=== PATIENT | male | born 1950 | race Caucasian/White ===

== ENCOUNTER → 2016-03-19 | Day surgery (SDC) | payer OTHER, BC ==
[~2016-03-19] VITALS: Ht 180.3 cm; Wt 118.0 kg
[~2016-03-19] MED LIST: ACET-1256 PO; ACET-1257 PO; ASPI81TA28 PO; ATOR-54 PO; B-COTAB83 PO; BISO10TA4 PO; CEFAZOLIN 1000MG/55 ML D5W IV SCH; CEPH500C PO; CHOLCAP10 PO; CINA60TA PO; CIPR-255 PO; CIPR1TAB10 PO; D5W AND 1/4NSS 1000 ML IV SCH; DICL1GEL34; FENTANYL CITRATE INJ 50 MCG/1 ML 2 ML VIAL ONE; FLUT1AER5 INH; FURO80TA63 PO; INSDGI SC; INSDGIPEN SC; INSULIN SQ; LIDOCAINE HCL 1% 20 ML VIAL INJ ONE; MIDAZOLAM HCL 1 MG/ML 2ML VIAL ONE; NVLGI7030 SC; OPTIRAY 300 IV ONE; RXC5 PO; SEVE800T7 PO; SNK PO; VNTHFA/IN INH
--- NOTE | 2016-03-19 07:50 | History and Physical ---
History & Physical Chief Complaint: Malfunctioning left wrist avf History of Present Illness The patient is a 63 year old male who had a fistula placed in 2009, Started using it last january. Not running well. Question of maturation of the fistula. He was found to have a proximal stenosis on a fistulogram and now has occluded that segment Allergies Coded Allergies: No Known Allergies (Unverified , 09/01/14) Surgical / Medical History Past Medical/Surgical History: Diabetes, Hypertension, Kidney Disease Review of Systems Constitutional: No chills, No diaphoresis, No fatigue, No fever, No malaise, No problem reported, No sweats, No weakness, No weight gain, No weight loss Respiratory: No POWERS, No PND, No cough, No cyanosis, No dyspnea, No hemoptysis, No orthopnea, No problem reported, No short of breath, No sputum production, No stridor, No wheezing Cardiovascular: No chest pain, No chest pressure, No chest tightness, No cyanosis, No diaphoresis, No edema, No intermittent claudication, No lightheadedness, No mumur, No orthopnea, No palpitations, No paroxysmal nocturnal dyspnea, No problem reported, No syncope Gastrointestinal: No abdominal pain, No anorexia, No appetite changes, No belching, No constipation, No diarrhea, No dysphagia, No flatulence, No food intolerance, No heartburn, No hematemesis, No hematochezia, No hemorrhoids, No indigestion, No nausea, No problem reported, No rectal bleeding, No stool changes, No vomiting Musculoskeletal: No back pain, No gout, No joint pain, No joint swelling, No muscle pain, No muscle stiffness, No muscle weakness, No neck pain, No problem reported Neurologic: No LOC, No dizziness, No headache, No lethargy, No memory loss, No numbness, No paresthesia, No pre-existing deficit, No problem reported, No seizures, No tics, No tingling, No tremors, No vertigo, No weakness Psychiatric: No alcohol abuse, No anxiety, No auditory hallucinations, No depression, No drug abuse, No homicidal ideation, No mood changes, No problem reported, No suicidal ideation, No visual hallucinations Physical Exam: Constitutional: General Apperance: heathly-appearing, well-nourished, well-developed Level of Distress: NAD Ambulation: ambulating normally Psychiatric: Mental Status: active & alert, normal mood, normal affect Orientation: oriented except where noted, to time, to place, to person Memory: recent memory normal, remote memory normal Head: normocephalic, atraumatic Lungs: Auscultation: breath sounds normal Cardiovascular: Heart Auscultation: RRR Peripheral Pulses: Carotid Pulse: normal on the left, normal on the right Radial Pulse: normal on the left, normal on the right Femoral Pulse: normal on the left, normal on the right Abdomen: Inspection & Palpation: soft Musculoskeletal: normal, normal strength (5/5 throughout), normal tone Extremities: Upper Right: no cyanosis, no edema, no varicosities, no palpable cord, no clubbing, no ulcers, no mottling Upper Left: no cyanosis, no edema, no varicosities, no palpable cord, no clubbing, no ulcers, no mottling, pertinent finding (no thrill at wrist) Lower Right: no cyanosis, no edema, no varicosities, no palpable cord, no clubbing, no ulcers, no mottling Lower Left: no cyanosis, no edema, no varicosities, no palpable cord, no clubbing, no ulcers, no mottling Neurologic: Cranial Nerves: grossly intact Sensation: grossly intact A&P - Vascular H&P Assessment and Plan Imp: Malfunctioning avf left wrist Plan: Patient for revision of his fistula. I have discussed the risks options and benefits of the procedure with the patient. The patient understands the risks options and benefits and agrees to the procedure.
--- NOTE | 2016-03-19 07:59 | Procedure Note ---
Pre-Mod Sedation Assessment General Date of Moderate Sedation: Mar 19, 2016. Pre-Sedation Airway Assessment Smoking Status: Never Smoker Mallampati Classification: Class I ASA Classification: Class II Notes The planned sedation has been discussed with the patient and consent obtained. I have identified the patient, determined the appropriateness of sedation and have assessed the patient immediately prior to the procedure. All medicine(s) and interventions are by my order.
[2016-03-19 08:32] VITALS: BP 164/82; PULSE 71; TEMP 36.4; O2SAT 96; BMI 36.0
[2016-03-19 08:46] VITALS: BP 164/82; PULSE 71; TEMP 36.4; O2SAT 96; Ht 180.3 cm; Wt 118.0 kg
--- NOTE | 2016-03-19 10:21 | [facility] Post Operative Brief Note ---
Immediate Operative Summary Operative Date Mar 19, 2016. Pre-Operative Diagnosis malfunctioning fistula Post-Operative Diagnosis same with cephalic vein stenosis Procedure(s) Performed Fistulogram Left Upper Extremity, Percutaneous Transluminal Angioplasty Cephalic Vein Surgeon Dr. Wiley Cocoa Roaster Surgeon(s) none Estimated Blood Loss 5 ml Findings min residual stenosis Specimens none Anesthesia Local Complication(s) None Disposition
--- NOTE | 2016-03-19 10:22 | Discharge Instructions ---
Discharge Instructions Visit Reason for Visit: End Stage Renal Disease Discharge Discharge Diagnosis / Problem: Malfunctioning av fistula, cephalic vein stenosis Discharge Goals Goal(s): Therapeutic intervention Activity Recommendations Activity Limitations: per Instructions/Follow-up section Anesthesia . Post Anesthesia Instructions: If you have had General Anesthesia or IV Sedation: * Do not drive today. * Resume driving when surgeon permits. * Do not make important decisions or sign legal documents today. * Call surgeon for: 1. Temperature elevations greater than 101 degrees F. 2. Uncontrollable pain. 3. Excessive bleeding. 4. Persistent nausea and vomiting. 5. Medication intolerance (nausea, vomiting or rash). * For nausea and vomiting use only clear liquids such as: tea, soda, bouillon until nausea subsides, then gradually increase diet as tolerated. * If you have any concerns or questions, call your surgeon's office. If physician is unavailable and it is an emergency, call 911 or go to the nearest emergency room. . Instructions / Follow-Up Instructions / Follow-Up Call [phone] with any questions or concerns. SPECIAL CARE INSTRUCTIONS: Medications: * Continue to take your medications as directed. If you have been given a prescription for Plavix, please fill it immediately and take as directed. Incision Care: * Your puncture site may have some bruising and minor swelling for about one week. * You will have a small dressing covering your puncture site. You may remove the dressing after 24 hours and shower. You may let the warm soapy water run over it, but be sure to dry the puncture site well and keep it dry. * DO NOT IMMERSE THE INCISION IN A TUB/POOL/etc. UNTIL HEALED. * Puncture sites should be kept covered with a band-aid until it begins to heal. Restrictions: * Depending on whether you leg or arm was punctured to access the arteries, you will be required to lay flat, hold your arm still, or both, for about 4 hours after the procedure to prevent bleeding. * Limit your activity for the first 48 hours. You may walk and go up and down steps. Avoid excessive bending or movement at the puncture site. Possible Complications: * Excessive Swelling - after blood flow is improved you may notice increased swelling in the lower legs. This is a normal response. This usually depends on the amount of blockages in the leg, how long they have been there prior to your procedure and how much blood flow was restored. Elevating your legs will help to improve this. Please notify our office ([phone] ) if the swelling does not go away after lying in bed overnight. * Infection/Drainage/Bleeding - Drainage or bleeding from the puncture site should be minimal. If you have excessive bleeding or drainage, call our office ([phone]) right away. * Pain - You may experience some mild pain or soreness at your puncture site. If your pain does not improve, please contact our office ([phone]). Call your doctor and seek emergent treatment if you develop: * Temperature above 101 degrees * Any fever or chills * Any redness or purulent drainage from the puncture site * Any new dusky/blue colored toes or feet with coolness or sharp or aching pain. SKIN IRRITATION: * You may experience some redness and/or swelling in the area where radiation was administered. If any skin irritation occurs, please contact your family physician. FOLLOW UP VISIT: Keep any scheduled doctor appointments. Diet Recommendations Recommended Home Diet: resume previous diet Procedures Procedures Performed: Fistulogram Left Upper Extremity, Percutaneous Transluminal Angioplasty Cephalic Vein Pending Studies Studies pending at discharge: no Medical Emergencies . Who to Call and When: Medical Emergencies: If at any time you feel your situation is an emergency, please call 911 immediately. . Non-Emergent Contact Non-Emergency issues call your: Surgeon . . "Provider Documentation" section prepared by Gatito Wiley.
[2016-03-19 10:28] VITALS: BP 172/86; PULSE 62; TEMP 36.7; O2SAT 98
--- NOTE | 2016-03-19 10:43 | DIAGNOSTIC IMAGING REPORT ---
DATE OF PROCEDURE: 03/19/2016 PREOPERATIVE DIAGNOSIS: Malfunctioning left upper extremity fistula. POSTOPERATIVE DIAGNOSIS: Same with cephalic vein stenosis. PROCEDURE: 1. Fistulogram, left upper extremity. 2. Balloon angioplasty, cephalic vein. SURGEON: Dr. Wiley. ANESTHETIC: Local. PROCEDURE INDICATIONS: The patient is a 65-year-old gentleman with a left wrist AV fistula. They are having some difficulty with fistulogram at dialysis with poor runs. Fistulogram was recommended. He understood the risks, options and benefits, and agreed to have this procedure. The patient was taken to the angiogram suite and placed in supine position. After left upper extremity was prepped and draped in a sterile manner, local anesthetic was administered. The fistula was punctured using micropuncture technique just beyond the arterial anastomosis at the wrist level. The micropuncture sheath was inserted and fistulogram was performed. There is a moderate narrowing noted in the proximal portion of the fistula in the cephalic vein, approximately 70-80%. The rest of the fistula from there up through the innominate veins is widely patent. The sheath was then exchanged to a 6-Palestinian sheath. An 8 x 4 balloon was used to dilate this area. There was significant residual stenosis remaining. The sheath was then exchanged to a 7-Palestinian and a 10 x 2 Conquest balloon was used to dilate this area. Good results were seen. 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 Above this area, the vein is of the same caliber as the dilated area. It was decided not to stretch it any further. There was an excellent thrill felt in the fistula at that time. The sheath was then pulled, pressure was applied, adequate hemostasis was obtained. Sterile dressings were applied to the puncture site and the patient left the angio suite in good condition, tolerated the procedure well. [facility] HOSPITALTruman
[2016-03-19 11:00] VITALS: BP 148/66; PULSE 55; TEMP 36.7; O2SAT 97
[2016-03-19 11:30] VITALS: BP 169/76; PULSE 58; TEMP 36.8; O2SAT 98
== END | disposition home or self-care (01) ==
LOC: C.ACU 07:27
PROVIDERS: ATTEND Surgery Vascular Surgery
DX: T82.858A Stenosis of other vascular prosthetic devices, implants and grafts, initial encounter (principal); I11.9 Hypertensive heart disease without heart failure; I10 Essential (primary) hypertension; E11.9 Type 2 diabetes mellitus without complications; N28.9 Disorder of kidney and ureter, unspecified; Y83.2 Surgical operation with anastomosis, bypass or graft as the cause of abnormal reaction of the patient, or of later complication, without mention of misadventure at the time of the procedure

== ENCOUNTER 2016-04-17 12:23 | Emergency (ER) | payer OTHER, BC ==
[~2016-04-17] VITALS: Ht 180.3 cm; Wt 115.0 kg
[~2016-04-17 12:23] MED LIST changes: -ACET-1256 PO; -ACET-1257 PO; -ASPI81TA28 PO; -ATOR-54 PO; -B-COTAB83 PO; -BISO10TA4 PO; -CEFAZOLIN 1000MG/55 ML D5W IV SCH; -CEPH500C PO; -CHOLCAP10 PO; -CINA60TA PO; -CIPR-255 PO; -D5W AND 1/4NSS 1000 ML IV SCH; -DICL1GEL34; -FENTANYL CITRATE INJ 50 MCG/1 ML 2 ML VIAL ONE; -FLUT1AER5 INH; -FURO80TA63 PO; -INSDGIPEN SC; -LIDOCAINE HCL 1% 20 ML VIAL INJ ONE; -MIDAZOLAM HCL 1 MG/ML 2ML VIAL ONE; -NVLGI7030 SC; -OPTIRAY 300 IV ONE; -RXC5 PO; -SEVE800T7 PO; -SNK PO; -VNTHFA/IN INH
[2016-04-17 12:36] VITALS: TEMP 36.9; Ht 180.3 cm; Wt 115.0 kg
[2016-04-17 13:00] LABS: URINE APPEARANCE TURBID (CLEAR); URINE BILIRUBIN NEG (NEG); URINE COLOR DK YELLOW; URINE NITRITE NEG (NEG); URINE SPECIFIC GRAVITY 1.016 (1.000-1.030); UROBILINOGEN NEG (NEG); ZZUR CULT IF INDIC CLEAN CATCH YES
[2016-04-17 13:06] LABS: MANUAL MICROSCOPIC REQUIRED? NO; REVIEW REQ? YES
[2016-04-17 13:44] LABS: BASO % 0.2 %; BASO ABS # 0.03 K/uL (0-0.2); COMPLETE YES; EOS % 0.3 %; HEMATOCRIT 31.2 % (42-52); IG% 0.2 %; LYMPH % 10.2 %; LYMPH ABS # 1.56 K/uL (1.2-3.4); MEAN CORPUSCULAR HEMOGLOBIN 29.2 pg (25-34); MEAN CORPUSCULAR HGB CONC 32.1 g/dl (32-36); MEAN PLATELET VOLUME 8.8 fL (7.4-10.4); NEUT % 84.1 %; PLATELET COUNT 259 K/uL (130-400); RED BLOOD COUNT 3.43 M/uL (4.7-6.1); WHITE BLOOD COUNT 15.24 K/uL (4.8-10.8)
[2016-04-17 14:26] LABS: BUN/CREATININE RATIO 6.9 (10-20); CALCIUM 8.2 mg/dl (8.5-10.1); CREATININE 7.4 mg/dl (0.60-1.40); POTASSIUM 4.4 mmol/L (3.5-5.1)
[2016-04-17] MEDS ORDERED: CIPROFLOXACIN 500 MG TAB PO STA (15:10)
[2016-04-17] MEDS ORDERED: CIPR-255 PO (15:12)
[2016-04-17 15:23] VITALS: BP 190/94; PULSE 62; O2SAT 97
--- NOTE | 2016-04-17 16:12 | EMERGENCY ROOM VISIT NOTE ---
History Report prepared by Amy: Fiordaliza Morse Under the Supervision of: Dr. Arnel Rojo M.D. First contact with patient: 13:10 Chief Complaint: URINARY SYMPTOMS Stated Complaint: CONSTANT URINATING Nursing Triage Summary: Pt states he has a constant urge to urinate and dribbling. On dialysis. History of Present Illness The patient is a 65 year old male who presents to the Emergency Room with complaints of constant urinary symptoms that started a couple days ago. The patient states that he has a constant urge to urinate along with increased urinary frequency. However, when he tries to urinate he "only dribbles." The patient is on dialysis, so the decreased urine volume is not new. However, he typically only urinates in the morning, so the increased urinary frequency is new for him. He denies burning with urination. The patient has been on dialysis for about two years. He experienced kidney failure secondary to diabetes. He receives dialysis Mondays, Wednesdays, and Fridays. He did not go to dialysis today, but he states that he went on Friday. The patient states that he feels well beside the increased urinary urgency and frequency. He denies headaches, fevers, chills, chest pain, shortness of breath, nausea, and vomiting. 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 They called his PCP about his symptoms but they wanted him to come into the ED because they were concerned that the symptoms were a complication from the amputation. The patient was supposed to get the stitches out of his leg yesterday, but he did not go due to the bad weather. The patient takes one baby aspirin daily, but otherwise denies being on any blood thinners. Source of History: patient, treating provider, spouse/significant other Onset: a couple days ago Quality: other (increased urinary urgency and frequency) Timing: constant Associated Symptoms: No SOB, No chest pain, No chills, No fevers, No headache, No nausea, No vomiting Review of Systems See HPI for pertinent positives & negatives. A total of 10 systems reviewed and were otherwise negative. 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 Nurse's notes were reviewed and I agree with. End-stage renal disease. Dialysis on Friday and Friday. Family History No pertinent family history Social History Smoking Status: Never Smoker Drug Use: none Marital Status: Housing Status: lives with family Occupation Status: retired Current/Historical Medications Scheduled Aspirin (Aspirin Ec), 81 MG PO QPM Atorvastatin (Lipitor), 20 MG PO QPM B-Complex W/ C & Folic Acid (Nephro-Rani Rx), 1 TAB PO QPM Bisoprolol Fumarate (Bisoprolol Fumarate), 20 MG PO QAM Cholecalciferol (D 5000), 5,000 UNITS PO WK Cinecalcet (Sensipar), 60 MG PO DAILY Ciprofloxacin Hcl (Cipro), 500 MG PO QD Fluticasone Propionate (Inhala (Flovent Diskus), 1 PUFFS INH BID Furosemide (Lasix), 160 MG PO DAILY Insulin Aspart 70/30 (Novolog Mix 70/30), 7 UNITS SC TIDM Insulin Glargine (Lantus Solostar), 20 UNITS SC QAM Sevelamer Carbonate (Renvela), 1,600 MG PO TIDM Scheduled PRN Acetaminophen (Tylenol), 1,000 MG PO Q4H PRN for Pain Miscellaneous Medications Diclofenac Sodium (Topical) (Diclofenac Sodium) Allergies Coded Allergies: No Known Allergies (Unverified , 04/17/16) Physical Exam Vital Signs Date Time Temp Pulse Resp B/P Pulse Ox O2 Delivery O2 Flow Rate FiO2 04/17/16 15:23 62 18 190/94 97 04/17/16 14:32 60 14 172/77 97 Room Air 04/17/16 12:36 36.9 60 18 154/71 96 Room Air Physical Exam General: Well developed well nourished non-ill appearing older male in no acute distress, breathing comfortably on room air. Normal speech HEENT: Normal cephalic atraumatic. Pupils are equal round and reactive to light. Extraocular movements are intact. Oropharynx is pink with moist mucous membranes. No swelling of the mouth lips or tongue. Neck: Supple with a midline trachea. No meningeal signs or stiffness, no JVD or bruits. No Stridor. Chest: Clear to auscultation bilaterally. No wheezes or rhonchi. No increased work of breathing. Heart: regular rate and rhythm. Abdomen: Soft nontender, nondistended without rebound guarding or rigidity. Extremities: Fistula in left arm with palpable thrill. Right BKA with well- healing incision. No cyanosis clubbing or edema. No calf tenderness or assymetry Spine/Back. Non tender to palpation. No CVA tenderness Skin: Good turgor without rashes. Neurologic exam: Cranial nerves two through 12 are intact. Motor and sensation are intact and symmetrical throughout. Medical Decision & Procedures Laboratory Results 04/17/16 13:20 Red Blood Count 3.43, Mean Corpuscular Volume 91.0, Mean Corpuscular Hemoglobin 29.2, Mean Corpuscular Hemoglobin Concent 32.1, Mean Platelet Volume 8.8, Neutrophils (%) (Auto) 84.1, Lymphocytes (%) (Auto) 10.2, Monocytes (%) (Auto) 5.0, Eosinophils (%) (Auto) 0.3, Basophils (%) (Auto) 0.2, Neutrophils # (Auto) 12.81, Lymphocytes # (Auto) 1.56, Monocytes # (Auto) 0.76, Eosinophils # (Auto) 0.05, Basophils # (Auto) 0.03 04/17/16 13:20 Test 04/17/16 12:45 04/17/16 13:20 Urine Color DK YELLOW Urine Appearance TURBID (CLEAR) Urine pH 5.0 (4.5-7.5) Urine Specific [place] 1.016 (1.000-1.030) Urine Protein 3+ (NEG) Urine Glucose (UA) NEG (NEG) Urine Ketones TRACE (NEG) Urine Occult Blood 2+ (NEG) Urine Nitrite NEG (NEG) Urine Bilirubin NEG (NEG) Urine Urobilinogen NEG (NEG) Urine Leukocyte Esterase LARGE (NEG) Urine WBC (Auto) >30 /hpf (0-5) Urine RBC (Auto) 10-30 /hpf (0-4) Urine Hyaline Casts (Auto) 1-5 /lpf (0-5) Urine Epithelial Cells (Auto) 10-20 /lpf (0-5) Urine Bacteria (Auto) 4+ (NEG) Urine Yeast (Auto) (NONE PRSENT) White Blood Count 15.24 K/uL (4.8-10.8) Red Blood Count 3.43 M/uL (4.7-6.1) Hemoglobin 10.0 g/dL (14.0-18.0) Hematocrit 31.2 % (42-52) Mean Corpuscular Volume 91.0 fL (80-100) Mean Corpuscular Hemoglobin 29.2 pg (25-34) Mean Corpuscular Hemoglobin Concent 32.1 g/dl (32-36) Platelet Count 259 K/uL (130-400) Mean Platelet Volume 8.8 fL (7.4-10.4) Neutrophils (%) (Auto) 84.1 % Lymphocytes (%) (Auto) 10.2 % Monocytes (%) (Auto) 5.0 % Eosinophils (%) (Auto) 0.3 % Basophils (%) (Auto) 0.2 % Neutrophils # (Auto) 12.81 K/uL (1.4-6.5) Lymphocytes # (Auto) 1.56 K/uL (1.2-3.4) Monocytes # (Auto) 0.76 K/uL (0.11-0.59) Eosinophils # (Auto) 0.05 K/uL (0-0.5) Basophils # (Auto) 0.03 K/uL (0-0.2) RDW Standard Deviation 56.4 fL (36.4-46.3) RDW Coefficient of Variation 17.1 % (11.5-14.5) Immature Granulocyte % (Auto) 0.2 % Immature Granulocyte # (Auto) 0.03 K/uL (0.00-0.02) Anion Gap 12.0 mmol/L (3-11) Est Creatinine Clear Calc Drug Dose 12.8 ml/min Estimated GFR () 8.1 Estimated GFR (Non- 7.0 BUN/Creatinine Ratio 6.9 (10-20) Calcium Level 8.2 mg/dl (8.5-10.1) Laboratory studies as stated above per my review. Medications Administered Medications (Trade) Dose Ordered Sig/Dwayne Route Start Time Stop Time Status Last Admin Dose Admin Ciprofloxacin (Cipro Tab) 500 mg NOW STAT PO 04/17/16 15:10 04/17/16 15:12 DC 04/17/16 15:18 500 MG ED Course 1312: Past medical records reviewed. The patient was evaluated in room C3, and a complete history and physical examination were performed. 1431: I reassessed the patient. He is resting comfortably. 1507: I discussed the patient's case with Dr. Villafuerte - Nephrology. He recommended starting the patient on 500 mg of ciprofloxacin and then send him strait to dialysis. He is going to alert the dialysis center that the patient is coming. 1510: Ordered Cipro Tab 500 mg PO 1512: Upon reevaluation, the patient is doing well. I discussed the results and treatment plan with him. He verbalized agreement of the treatment plan. The patient was discharged home. Medical Decision Differentials include, but are not limited to; UTI, electrolyte or metabolic abnormality. This patient comes in as described above. He has had some urinary frequency but besides this feels fine. he is a dialysis patient and does not make much urine. He had no fever or back pain or systemic complaints. His urine does suggest a infection with a culture pending. He has no acute electrolyte or metabolic abnormalities. potassium is 4.4. his white count is elevated 15. he's been normotensive and has been afebrile. I did talk to his reproduction artist, Dr. Villafuerte, as I was concerned that he missed dialysis today. He told me that the dialysis center that he gets his dialysis in [place] is open until 7 or 8 at night and he should be able to get dialysis today. he is going to call over at length him know he's coming. he recommends Cipro 500 mg once a day. he was given first dose here as well as a prescription. He was sent home and will get dialysis on the way home. I encouraged him to return if he has fever, back pain , worsening of symptoms, not tolerating fluids, any problems concerns. He follow with his doctor 1-2 days for recheck or sooner if any problems. The patient and are happy with the plan and he was discharged to home. Consults Time Called: 1428 Consulting Physician: Dr. Villafuerte - Nephrology Returned Call: 1504 I discussed the patient's case with Dr. Villafuerte - Farhan. He recommended starting the patient on 500 mg of ciprofloxacin and then send him strait to dialysis. He is going to alert the dialysis center that the patient is coming. Impression Primary Impression: Urinary tract infection Additional Impression: End stage renal disease Scribe Attestation The scribe's documentation has been prepared under my direction and personally reviewed by me in its entirety. I confirm that the note above accurately reflects all work, treatment, procedures, and medical decision making performed by me. Departure Information Dispostion Other (Dialysis) Prescriptions Ciprofloxacin Hcl (CIPRO) 500 Mg Tab 500 MG PO QD, #10 TAB Prov: Arnel Rojo M.D. 04/17/16 Referrals Juliet Rick (PCP) Forms HOME CARE DOCUMENTATION FORM, IMPORTANT VISIT INFORMATION Patient Instructions My [facility] Additional Instructions Rest Straight to dialysis. They should be expecting you Use Cipro 500 mg once a day for 10 days Return if: Fever, worsening symptoms, abdominal pain, not tolerating fluids, any new problems or concerns. Problem Qualifiers
--- NOTE | 2016-04-19 16:15 | Pharmacy Progress Note ---
ED Pharmacist Culture FollowUp Date of Service: Apr 19, 2016. Patient was sent home with a prescription for Cipro 500mg PO daily, however the urine culture from 04/17/16 is growing E coli resistant to Cipro. Discussed the case with Dr Rojo, will d/c the Cipro and begin Keflex 500mg PO Daily x 10 days, to be dosed after dialysis on days of dialysis. I contacted the patient and obtained instructions to call this Rx to [facility], Lexi Erickson ([phone]). The Rx was successfully called to this pharmacy. The patient is aware he is to stop taking the Cipro.
[2016-04-23] MEDS ORDERED: ASPI81TA28 PO (11:17)
== END 2016-04-17 15:22 | disposition home or self-care (01) ==
LOC: C.EDB 12:24 → C.EDC 15:22
DX: N39.0 Urinary tract infection, site not specified (principal); N18.6 End stage renal disease; E11.9 Type 2 diabetes mellitus without complications; E78.5 Hyperlipidemia, unspecified; Z99.2 Dependence on renal dialysis; Z86.19 Personal history of other infectious and parasitic diseases; Z79.82 Long term (current) use of aspirin; Z79.4 Long term (current) use of insulin; Z79.899 Other long term (current) drug therapy

== ENCOUNTER 2016-04-22 08:14 | Inpatient (IN) | payer OTHER, BC ==
[~2016-04-22] VITALS: Ht 180.3 cm; Wt 119.0 kg
[2016-04-22] VITALS (17 sets, daily range): BP systolic 124–195; BP diastolic 61–79; PULSE 51–58; TEMP 36.4–37.6; O2SAT 96–98; Ht 180.3 cm; Wt 119.0 kg
[~2016-04-22 08:14] MED LIST changes: +CIPR-255 PO; -CIPR1TAB10 PO; -INSDGI SC; -INSULIN SQ
[2016-04-22] MEDS ORDERED: ACET-1256 PO (08:27)
--- NOTE | 2016-04-22 08:36 | EMERGENCY ROOM VISIT NOTE ---
History First contact with patient: 08: (Grant Sexton PA-C) First contact with patient: 08: (Polly Huber MD) Chief Complaint: URINARY SYMPTOMS Stated Complaint: UTI, CONSTANT URINE AND PURE BLOOD Nursing Triage Summary: Pt is a dialysis pt. Seen here last Fri and dx with a UTI. Pt started on Cipro, called on Fri and had it changed to Keflex. Pt reports starting yesterday morning hematuria. Pt reports freq. Denies burning with urination. Pt scheduled for dialysis today at 1000. (Grant Sexton PA-C) History of Present Illness The patient is a 65 year old male who presents to the Emergency Room via private vehicle accompanied by with complaints of "UTI, constant urine. Blood". The patient states that he was seen here a few days ago and diagnosed with a UTI and was placed upon ciprofloxacin. He states that he has taken this until Friday where he received a phone call from the hospital stating that a change to Keflex should be made based upon the urine culture. He then began the Keflex on Friday and notes that it did help with the foul-smelling urine, however yesterday he began with visible blood in the urine which was bright red. He states that this has increase in frequency and now he is urinating every 30-45 minutes which is unusual for him. He does have kidney disease and is dialyzed 3 times per week. His last dialysis was on Friday. He is to be at dialysis today at 10 AM. He also noted that he had pain in the lower abdomen with coughing that he noted yesterday, but has since subsided. He denies any pain with bowel movements but has had a little bit of diarrhea since beginning the Keflex. He denies any dysuria, rashes or penile discharge. He has taken Keflex in the past before. He denies any fevers, chills or back pain. (Grant Sexton PA-C) Review of Systems A complete 10-point Review of Systems was discussed with the patient, with pertinent positives and negatives listed in the History of Present Illness. All remaining Review of Systems questions can be considered negative unless otherwise specified. 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 (3) Hyperlipemia (4) Sepsis (Polly Huber MD) Family History No pertinent family history Diabetes, heart disease, high blood pressure, cancer, kidney disease or stones (Grant Sexton PA-C) No pertinent family history (Polly Huber MD) Social History Smoking Status: Never Smoker Drug Use: none Marital Status: Housing Status: lives with family Occupation Status: retired (Grant Sexton PA-C) Current/Historical Medications Scheduled Aspirin (Aspirin Ec), 81 MG PO QPM Atorvastatin (Lipitor), 20 MG PO QPM B-Complex W/ C & Folic Acid (Nephro-Rani Rx), 1 TAB PO QPM Bisoprolol Fumarate (Bisoprolol Fumarate), 20 MG PO QAM Cephalexin Monohydrate (Keflex), 500 MG PO DAILY Cholecalciferol (D 5000), 5,000 UNITS PO WK Cinecalcet (Sensipar), 60 MG PO DAILY Fluticasone Propionate (Inhala (Flovent Diskus), 1 PUFFS INH BID Furosemide (Lasix), 160 MG PO DAILY Insulin Aspart 70/30 (Novolog Mix 70/30), 7 UNITS SC TIDM Insulin Glargine (Lantus Solostar), 20 UNITS SC QAM Sevelamer Carbonate (Renvela), 1,600 MG PO TIDM Scheduled PRN Acetaminophen (Tylenol), 1,000 MG PO Q4H PRN for Pain Miscellaneous Medications Diclofenac Sodium (Topical) (Diclofenac Sodium) Allergies Coded Allergies: No Known Allergies (Unverified , 04/22/16) Physical Exam Vital Signs Date Time Temp Pulse Resp B/P Pulse Ox O2 Delivery O2 Flow Rate FiO2 04/22/16 09:48 36.9 53 16 167/67 96 Room Air 04/22/16 08:20 37.1 56 18 170/61 98 Room Air (Polly Huber MD) Physical Exam VITAL SIGNS - Vital signs and nursing notes were reviewed. Afebrile, slightly hypertensive at 170/61, nontender tachycardic and saturating well on room air 98 %. GENERAL -65-year-old male appearing his stated age who is in no acute distress. He is nontoxic in appearance. Communicates well with provider and answers questions appropriately. SKIN - Without rashes. HEAD - NC/AT. EYES - PERRL with EOMI bilaterally. Sclera anicteric. Palpebral conjunctiva pink and moist with no injection noted. EARS - No deformities of external structures noted on gross examination bilaterally. No pain elicited with palpation of the tragus bilaterally. External auditory canals without discharge or otorrhea. Tympanic membranes pearly burroughs without retraction or bulging. No fluid or purulent material visualized behind the TM. Handle of malleus, umbo, cone of light, pars tensa/ flaccid all easily visualized. NOSE - Midline and without cyanosis. No epistaxis or purulent drainage noted. Septum midline without deviation or septal hematoma noted. MOUTH/OROPHARYNX - Without perioral cyanosis. Buccal mucosa pink and moist and without leukoplakia. Tongue midline with equal elevation of palate bilaterally. No tonsillar hypertrophy, erythema, or exudates noted. Fair dentition noted. NECK - Neck with FROM. Supple to palpation. No lymphadenopathy noted. No nuchal rigidity. LUNGS - Chest wall symmetric without accessory muscle use, intercostals retractions, or central cyanosis. Normal vesicular breath sounds CTA B/L. No wheezes, rales, or rhonchi appreciated. CARDIAC - RRR with S1/S2. No murmur, rubs, or gallops appreciated. ABDOMEN - Abdominal contour without pulsations or visible masses. BS normoactive all four quadrants. No tenderness, palpable masses, hepatosplenomegaly, or ascites noted. No CVA tenderness. EXTREMITIES - No clubbing or peripheral cyanosis. No pretibial edema present. 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 + 5/5 strength noted in UE/LE bilaterally. NEUROLOGIC - Cranial nerves II through XII grossly intact. Sensory intact to light touch throughout. PSYCH - A&Ox3 and cooperates fully with examiner. Pt is very pleasant and interacts well with examiner. : There is evidence of bright red blood at the urethral meatus. Otherwise unremarkable. (Grant Sexton, PAMackenzieC) Medical Decision & Procedures ER Provider Diagnostic Interpretation: ABDOMEN AND PELVIS CT WITHOUT CONTRAST CT DOSE: 1341.55 mGycm HISTORY: Hematuria Painless hematuria x 1 day. Gross red blood. TECHNIQUE: Multiaxial CT images of the abdomen and pelvis were performed without contrast. COMPARISON STUDY: None. FINDINGS: Severely come mild exam due to the absence of intravenous contrast enhancement. Lung bases are considered clear. Small calcified granuloma medial aspect left base. Liver is unremarkable in overall configuration. Gallstones are present within the gallbladder neck. Spleen is uniform. Adrenal glands are unremarkable. Kidneys negative for hydronephrosis. There is no nonobstructing renal vascular calcification central right kidney. There is no evidence for an obstructing urinary tract calculus. Bladder is midline. There is a high density mass versus thrombus within the posterior aspect of the base of the bladder. This measures approximately 6 x 4 cm. Cystoscopy is indicated particularly given the patient's history of hematuria. There is a moderate inguinal adenopathy. Nodes on the right measure up to 11 mm with nodes in the left measuring 2 12 mm. Bowel pattern is nonobstructive. Several small periventricular as well as pelvic sidewall nodes are present none of which exceed 8 mm. IMPRESSION: 1. Blood clot versus soft tissue mass base of bladder measuring 6 x 5 cm. 2. Cystoscopy is recommended as follow-up. 3. Unremarkable upper urinary tracts. 4. Compromise study given the patient's history of hematuria due to absence of intravenous contrast enhancement. 5. Nonspecific abdominal pelvic and inguinal adenopathy. 6. Gallstones Electronically signed by: Luis Manuel Bauer M.D. 04/22/2016 10:18 AM Dictated Date/Time: 04/22/2016 10:12 AM (Grant Sexton PA-C) Laboratory Results 04/22/16 08:55 Red Blood Count 3.30, Mean Corpuscular Volume 89.4, Mean Corpuscular Hemoglobin 29.1, Mean Corpuscular Hemoglobin Concent 32.5, Mean Platelet Volume 9.3, Neutrophils (%) (Auto) 73.3, Lymphocytes (%) (Auto) 16.7, Monocytes (%) (Auto) 7.9, Eosinophils (%) (Auto) 1.6, Basophils (%) (Auto) 0.2, Neutrophils # (Auto) 9.41, Lymphocytes # (Auto) 2.14, Monocytes # (Auto) 1.01, Eosinophils # (Auto) 0.21, Basophils # (Auto) 0.03 04/22/16 08:55 Test 04/22/16 08:30 04/22/16 08:55 Urine Color RED Urine Appearance TURBID (CLEAR) Urine pH 6.5 (4.5-7.5) Urine Specific [place] 1.020 (1.000-1.030) Urine Protein 3+ (NEG) Urine Glucose (UA) NEG (NEG) Urine Ketones NEG (NEG) Urine Occult Blood 3+ (NEG) Urine Nitrite POS (NEG) Urine Bilirubin NEG (NEG) Urine Urobilinogen NEG (NEG) Urine Leukocyte Esterase SMALL (NEG) Urine RBC >30 /hpf (0-4) Urine WBC >30 /hpf (0-5) Urine Epithelial Cells 5-10 /lpf (0-5) Urine Bacteria 2+ (NEG) White Blood Count 12.84 K/uL (4.8-10.8) Red Blood Count 3.30 M/uL (4.7-6.1) Hemoglobin 9.6 g/dL (14.0-18.0) Hematocrit 29.5 % (42-52) Mean Corpuscular Volume 89.4 fL (80-100) Mean Corpuscular Hemoglobin 29.1 pg (25-34) Mean Corpuscular Hemoglobin Concent 32.5 g/dl (32-36) Platelet Count 326 K/uL (130-400) Mean Platelet Volume 9.3 fL (7.4-10.4) Neutrophils (%) (Auto) 73.3 % Lymphocytes (%) (Auto) 16.7 % Monocytes (%) (Auto) 7.9 % Eosinophils (%) (Auto) 1.6 % Basophils (%) (Auto) 0.2 % Neutrophils # (Auto) 9.41 K/uL (1.4-6.5) Lymphocytes # (Auto) 2.14 K/uL (1.2-3.4) Monocytes # (Auto) 1.01 K/uL (0.11-0.59) Eosinophils # (Auto) 0.21 K/uL (0-0.5) Basophils # (Auto) 0.03 K/uL (0-0.2) RDW Standard Deviation 52.6 fL (36.4-46.3) RDW Coefficient of Variation 15.9 % (11.5-14.5) Immature Granulocyte % (Auto) 0.3 % Immature Granulocyte # (Auto) 0.04 K/uL (0.00-0.02) Anion Gap 13.0 mmol/L (3-11) Est Creatinine Clear Calc Drug Dose 10.7 ml/min Estimated GFR () 6.5 Estimated GFR (Non- 5.6 BUN/Creatinine Ratio 7.0 (10-20) Calcium Level 7.7 mg/dl (8.5-10.1) Total Bilirubin 0.4 mg/dl (0.2-1) Aspartate Amino Transf (AST/SGOT) 19 U/L (15-37) Alanine Aminotransferase (ALT/SGPT) 22 U/L (12-78) Alkaline Phosphatase 162 U/L (45-117) Total Protein 7.1 gm/dl (6.4-8.2) Albumin 2.7 gm/dl (3.4-5.0) Globulin 4.4 gm/dl (2.5-4.0) Albumin/Globulin Ratio 0.6 (0.9-2) (Polly Huber MD) Medical Decision Patient was seen and evaluated as above. After a thorough history and physical examination, IV access was obtained and a CBC, CMP, bladder scan, CT of the abdomen and pelvis no IV and oral contrast, UA clean catch culture if indicated was initiated. Patient has painless hematuria and also points to a small raised lesion on his right arm that he thinks is a boil. I believe that this could be malignant in nature, therefore he is to follow-up with his family doctor for further potential referral to a specialist for excision. CT of the abdomen and pelvis without IV and oral contrast was obtained due to the patient' s high creatinine level. This did reveal a mass in the bladder as well as adenopathy. This finding in conjunction with the gross painless hematuria and hemoglobin level of 9.6, slight leukocytosis, abnormal potassium, chloride, elevated BUN/creatinine as well as elevated alkaline phosphatase all clinically correlate a condition that needs further management, and I believe this will be done best in the inpatient setting. Urine revealed 3+ protein, 3+ occult blood , positive nitrates, small mild leukocyte esterase, 2+ urine bacteria indicating a potential UTI or even pyelonephritis but the patient didn't have back pain or fevers. The case was discussed with my attending, and it was decided to admit the patient for further evaluation and management. At 11:09 AM I spoke with Dr. Tyler who agreed to evaluate and admit the patient. Please refer to further documentation by hospital staff regarding the patient's stay. I do believe the patient will benefit from inpatient management. In the evaluation and treatment of this patient the following differential diagnoses were entertained: Pyelonephritis, hemorrhagic cystitis, bladder cancer , malignant melanoma, anemia, among others. (Grant Sexton, PAMackenzieC) Impression Primary Impression: Hematuria Additional Impressions: Anemia Urinary tract infection End stage renal disease Mass of bladder Departure Information Dispostion Admitted as an inpatient Condition FAIR Referrals Juliet Rick (PCP) Patient Instructions My [facility] Problem Qualifiers
[2016-04-22] MEDS ORDERED: CEPH500C PO (08:40)
[2016-04-22] MEDS ORDERED: CINA60TA PO (09:10)
[2016-04-22] MEDS ORDERED: FLUT1AER5 INH (09:10)
[2016-04-22] MEDS ORDERED: FURO80TA63 PO (09:10)
[2016-04-22] MEDS ORDERED: DICL1GEL34 (09:10)
[2016-04-22 09:11] LABS: MANUAL MICROSCOPIC REQUIRED? YES; URINE APPEARANCE TURBID (CLEAR); URINE BILIRUBIN NEG (NEG); URINE COLOR RED; URINE NITRITE POS (NEG); URINE PH 6.5 (4.5-7.5); UROBILINOGEN NEG (NEG)
[2016-04-22 09:12] LABS: REVIEW REQ? NO
[2016-04-22 09:25] LABS: URINE BACTERIA 2+ (NEG); URINE RBC >30 /hpf (0-4); URINE WBC >30 /hpf (0-5)
[2016-04-22 09:26] LABS: ZZUR CULT IF INDIC CLEAN CATCH YES
[2016-04-22 09:32] LABS: BASO % 0.2 %; BASO ABS # 0.03 K/uL (0-0.2); COMPLETE YES; EOS % 1.6 %; HEMATOCRIT 29.5 % (42-52); IG% 0.3 %; LYMPH % 16.7 %; LYMPH ABS # 2.14 K/uL (1.2-3.4); MEAN CELL VOLUME 89.4 fL (80-100); MEAN CORPUSCULAR HEMOGLOBIN 29.1 pg (25-34); MEAN CORPUSCULAR HGB CONC 32.5 g/dl (32-36); MEAN PLATELET VOLUME 9.3 fL (7.4-10.4); MONO % 7.9 %; NEUT % 73.3 %; PLATELET COUNT 326 K/uL (130-400); WHITE BLOOD COUNT 12.84 K/uL (4.8-10.8)
--- NOTE | 2016-04-22 10:19 | DIAGNOSTIC IMAGING REPORT ---
ABDOMEN AND PELVIS CT WITHOUT CONTRAST CT DOSE: 1341.55 mGycm HISTORY: Hematuria Painless hematuria x 1 day. Gross red blood. TECHNIQUE: Multiaxial CT images of the abdomen and pelvis were performed without contrast. COMPARISON STUDY: None. FINDINGS: Severely come mild exam due to the absence of intravenous contrast enhancement. Lung bases are considered clear. Small calcified granuloma medial aspect left base. Liver is unremarkable in overall configuration. Gallstones are present within the gallbladder neck. Spleen is uniform. Adrenal glands are unremarkable. Kidneys negative for hydronephrosis. There is no nonobstructing renal vascular calcification central right kidney. There is no evidence for an obstructing urinary tract calculus. Bladder is midline. There is a high density mass versus thrombus within the posterior aspect of the base of the bladder. This measures approximately 6 x 4 cm. Cystoscopy is indicated particularly given the patient's history of hematuria. There is a moderate inguinal adenopathy. Nodes on the right measure up to 11 mm with nodes in the left measuring 2 12 mm. Bowel pattern is nonobstructive. Several small periventricular as well as pelvic sidewall nodes are present none of which exceed 8 mm. IMPRESSION: 1. Blood clot versus soft tissue mass base of bladder measuring 6 x 5 cm. 2. Cystoscopy is recommended as follow-up. 3. Unremarkable upper urinary tracts. 4. Compromise study given the patient's history of hematuria due to absence of intravenous contrast enhancement. 5. Nonspecific abdominal pelvic and inguinal adenopathy. 6. Gallstones Electronically signed by: Luis Manuel Bauer M.D. 04/22/2016 10:18 AM Dictated Date/Time: 04/22/2016 10:12 AM
[2016-04-22 10:20] LABS: ALB/GLOB RATIO 0.6 (0.9-2); CALCIUM 7.7 mg/dl (8.5-10.1); CREATININE 8.9 mg/dl (0.60-1.40); POTASSIUM 3.8 mmol/L (3.5-5.1)
[2016-04-22] MEDS ORDERED: ASPI81TA28 PO (11:28)
[2016-04-22] MEDS ORDERED: ATOR-54 PO (11:28)
[2016-04-22] MEDS ORDERED: NVLGI7030 SC (11:28)
[2016-04-22] MEDS ORDERED: CHOLCAP10 PO (11:28)
[2016-04-22] MEDS ORDERED: B-COTAB83 PO (11:28)
[2016-04-22] MEDS ORDERED: SEVE800T7 PO (11:28)
--- NOTE | 2016-04-22 11:45 | EMERGENCY ROOM VISIT NOTE ---
ED Visit Note First contact with patient: 08:26 Patient evaluated with PA. On examination at 11:40 AM patient appears comfortable with no acute complaints. He is noted to have had painless hematuria and suspected mass on CT today. History of end-stage renal disease on hemodialysis. Agree with management and plan.
[2016-04-22] MEDS ORDERED: ACETAMINOPHEN 500 MG TAB PO PRN (12:15)
[2016-04-22] MEDS ORDERED: ONDANSETRON INJ 2 MG/ML 2 ML VIAL IV PRN (12:15)
[2016-04-22] MEDS ORDERED: ACETAMINOPHEN 325 MG TAB PO PRN (12:15)
--- NOTE | 2016-04-22 13:34 | History and Physical ---
History & Physical Date & Time of Service: Apr 22, 2016 at 13:13 Chief Complaint: Uti, Constant Urine And Pure Blood Primary Care Physician: Juliet Rick History of Present Illness Source: patient, family, hospital records This patient is a pleasant 65-year-old male that presents emergency department complaining of hematuria. The hematuria started yesterday. He did also passed some blood clots. He initially started having urinary discomfort about 1 week ago. He came to the emergency department on 04/17. He was found to have a urinary tract infection. He was prescribed ciprofloxacin. The patient was then switched from Cipro to Keflex 2 days later after the culture was reviewed. The culture is growing Escherichia coli resistant to ciprofloxacin. The patient also has a history of end-stage renal disease. He does produce small amounts of urine. He is typically dialyzes Friday, Friday and Friday. The patient denies any dysuria, however he does note urinary frequency, and again the hematuria. He denies any abdominal pain. Workup in the emergency department consisted of a CT of the abdomen and pelvis. A 4 x 6 cm mass was noted in the bladder. This is thought to be possibly a blood clot versus a mass. The patient has no other complaints. He has otherwise been feeling well. No recent illnesses. Denies any chest pain, shortness of breath, heart palpitations and dizziness Past Medical/Surgical History Medical Problems: (1) Diabetes Status: Chronic (2) Hyperlipemia Status: Chronic Hypertension End-stage renal disease-follows with [facility] nephrology. 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 Family History No pertinent family history Mother and father both have a history of lung cancer Social History Smoking Status: Never Smoker Drug Use: none Marital Status: Housing status: lives with significant other Occupational Status: retired Allergies Coded Allergies: No Known Allergies (Unverified , 04/22/16) Home Medications Scheduled Aspirin (Aspirin Ec), 81 MG PO QPM Atorvastatin (Lipitor), 20 MG PO QPM B-Complex W/ C & Folic Acid (Nephro-Rani Rx), 1 TAB PO QPM Bisoprolol Fumarate (Bisoprolol Fumarate), 20 MG PO QAM Cephalexin Monohydrate (Keflex), 500 MG PO DAILY Cholecalciferol (D 5000), 5,000 UNITS PO WK Cinecalcet (Sensipar), 60 MG PO DAILY Fluticasone Propionate (Inhala (Flovent Diskus), 1 PUFFS INH BID Furosemide (Lasix), 160 MG PO DAILY Insulin Aspart 70/30 (Novolog Mix 70/30), 7 UNITS SC TIDM Insulin Glargine (Lantus Solostar), 20 UNITS SC QAM Sevelamer Carbonate (Renvela), 1,600 MG PO TIDM Scheduled PRN Acetaminophen (Tylenol), 1,000 MG PO Q4H PRN for Pain Miscellaneous Medications Diclofenac Sodium (Topical) (Diclofenac Sodium) Review of Systems 10 system review performed and negative unless noted in HPI or below Physical Exam Vital Signs Date Time Temp Pulse Resp B/P Pulse Ox O2 Delivery O2 Flow Rate FiO2 04/22/16 11:43 51 18 166/67 97 Room Air 04/22/16 09:48 36.9 53 16 167/67 96 Room Air 04/22/16 08:20 37.1 56 18 170/61 98 Room Air General Appearance: no apparent distress Head: normocephalic Eyes: EOMI ENT: + pertinent finding (oral mucosa moist) Neck: no JVD Respiratory/Chest: lungs clear Cardiovascular: regular rate, rhythm Abdomen/GI: normal bowel sounds, non tender, soft Extremities/Musculoskelatal: + pertinent finding (right BKA noted. No edema in the left lower extremity.) Neurologic/Psych: no motor/sensory deficits, alert, oriented x 3 Skin: warm/dry Diagnostics Laboratory Results Results Past 24 Hours Test 04/22/16 08:30 04/22/16 08:55 Range/Units Urine Color RED Urine Appearance TURBID CLEAR Urine pH 6.5 4.5-7.5 Urine Specific [place] 1.020 1.000-1.030 Urine Protein 3+ NEG Urine Glucose (UA) NEG NEG Urine Ketones NEG NEG Urine Occult Blood 3+ NEG Urine Nitrite POS NEG Urine Bilirubin NEG NEG Urine Urobilinogen NEG NEG Urine Leukocyte Esterase SMALL NEG Urine RBC >30 0-4 /hpf Urine WBC >30 0-5 /hpf Urine Epithelial Cells 5-10 0-5 /lpf Urine Bacteria 2+ NEG White Blood Count 12.84 4.8-10.8 K/uL Red Blood Count 3.30 4.7-6.1 M/uL Hemoglobin 9.6 14.0-18.0 g/dL Hematocrit 29.5 42-52 % Mean Corpuscular Volume 89.4 80-100 fL Mean Corpuscular Hemoglobin 29.1 25-34 pg Mean Corpuscular Hemoglobin Concent 32.5 32-36 g/dl Platelet Count 326 130-400 K/uL Mean Platelet Volume 9.3 7.4-10.4 fL Neutrophils (%) (Auto) 73.3 % Lymphocytes (%) (Auto) 16.7 % Monocytes (%) (Auto) 7.9 % Eosinophils (%) (Auto) 1.6 % Basophils (%) (Auto) 0.2 % Neutrophils # (Auto) 9.41 1.4-6.5 K/uL Lymphocytes # (Auto) 2.14 1.2-3.4 K/uL Monocytes # (Auto) 1.01 0.11-0.59 K/uL Eosinophils # (Auto) 0.21 0-0.5 K/uL Basophils # (Auto) 0.03 0-0.2 K/uL RDW Standard Deviation 52.6 36.4-46.3 fL RDW Coefficient of Variation 15.9 11.5-14.5 % Immature Granulocyte % (Auto) 0.3 % Immature Granulocyte # (Auto) 0.04 0.00-0.02 K/uL Sodium Level 133 136-145 mmol/L Potassium Level 3.8 3.5-5.1 mmol/L Chloride Level 96 98-107 mmol/L Carbon Dioxide Level 24 21-32 mmol/L Anion Gap 13.0 3-11 mmol/L Blood Urea Nitrogen 62 7-18 mg/dl Creatinine 8.90 0.60-1.40 mg/dl Est Creatinine Clear Calc Drug Dose 10.7 ml/min Estimated GFR () 6.5 Estimated GFR (Non- 5.6 BUN/Creatinine Ratio 7.0 10-20 Random Glucose 131 70-99 mg/dl Calcium Level 7.7 8.5-10.1 mg/dl Total Bilirubin 0.4 0.2-1 mg/dl Aspartate Amino Transf (AST/SGOT) 19 15-37 U/L Alanine Aminotransferase (ALT/SGPT) 22 12-78 U/L Alkaline Phosphatase 162 45-117 U/L Total Protein 7.1 6.4-8.2 gm/dl Albumin 2.7 3.4-5.0 gm/dl Globulin 4.4 2.5-4.0 gm/dl Albumin/Globulin Ratio 0.6 0.9-2 Microbiology Results 04/22/16 Urine Culture, Received Pending Diagnostic Radiology ABDOMEN AND PELVIS CT WITHOUT CONTRAST CT DOSE: 1341.55 mGycm HISTORY: Hematuria Painless hematuria x 1 day. Gross red blood. TECHNIQUE: Multiaxial CT images of the abdomen and pelvis were performed without contrast. COMPARISON STUDY: None. FINDINGS: Severely come mild exam due to the absence of intravenous contrast enhancement. Lung bases are considered clear. Small calcified granuloma medial aspect left base. Liver is unremarkable in overall configuration. Gallstones are present within the gallbladder neck. Spleen is uniform. Adrenal glands are unremarkable. Kidneys negative for hydronephrosis. There is no nonobstructing renal vascular calcification central right kidney. There is no evidence for an obstructing urinary tract calculus. Bladder is midline. There is a high density mass versus thrombus within the posterior aspect of the base of the bladder. This measures approximately 6 x 4 cm. Cystoscopy is indicated particularly given the patient's history of hematuria. There is a moderate inguinal adenopathy. Nodes on the right measure up to 11 mm with nodes in the left measuring 2 12 mm. Bowel pattern is nonobstructive. Several small periventricular as well as pelvic sidewall nodes are present none of which exceed 8 mm. IMPRESSION: 1. Blood clot versus soft tissue mass base of bladder measuring 6 x 5 cm. 2. Cystoscopy is recommended as follow-up. 3. Unremarkable upper urinary tracts. 4. Compromise study given the patient's history of hematuria due to absence of intravenous contrast enhancement. 5. Nonspecific abdominal pelvic and inguinal adenopathy. 6. Gallstones Electronically signed by: Luis Manuel Bauer M.D. 04/22/2016 10:18 AM Dictated Date/Time: 04/22/2016 10:12 AM The status of this report is Signed. Draft = Not yet reviewed or approved by Radiologist. Signed = Reviewed and approved by Radiologist. <AttendingPhy></AttendingPhy> <FamilyPhy>Juliet RickNJacquiP.</FamilyPhy> < PrimaryPhy>Juliet RickNJacquiP.</PrimaryPhy> <UnitNumber>[id number]</ UnitNumber> <VisitNumber>[id number]</VisitNumber> <PatientName>NOHEMI ENRIQUEZ</ PatientName> <DateOfBirth>1950</DateOfBirth> <Location>[facility]</Location> < ServiceDate>04/22/16</ServiceDate> <MNE>ESINDI</MNE> <OrderingPhy>Grant Sexton PA-C</OrderingPhy> <OrderingPhyMNE>f rep ord dr andersen</OrderingPhyMNE> < DictatingPhyMNE>f rep dict dr andersen</DictatingPhyMNE> <CCListMNE>f rep ct mne</ CCListMNE> <AdmittingPhyMNE>f pt admit dr andersen</AdmittingPhyMNE> <AttendingPhyMNE >f pt attend dr andersen Impression Assessment and Plan 65 y/o male presents to the ED with urinary frequency and hematuria. Known diagnosis of UTI growing Escherichia coli resistant to Cipro. Hemoglobin is stable. Patient does not appear septic. Hematuria, UTI, bladder mass-likely blood clot. (as opposed to malignancy) -Admit to medical floor -Insert Nunez -Begin Rocephin 1 g IV daily -Urology consult-possible cystoscopy tomorrow -Hold ASA -Follow H&H End-stage renal disease -Nephrology consulted-aware of patient -Continue dialysis Friday, Friday, Friday -Continue Renvela 1600 mg TID, Sensipar 60 mg daily, Lasix 160 mg daily diabetes mellitus -Hold home dose of 70/30 7 u TID with meals -I will cut the patient's Lantus dose in half to 10 units in the morning as he will be NPO after midnight -follow BSGs AC, HS and with meals -insulin sliding scale -check HgbA1C HTN -Bisoprolol 20 mg in the AM DVT prophylaxis -Contraindicated -TEDS, SCDs CODE STATUS -LEVEL I FULL CODE MARIVEL Physician Supervision Note: I interviewed and examined the patient. Discussed with Janice RIDLEY and agree with findings and plan as documented in the note. Any exceptions or clarifications are listed here: None Pt was seen with at bedside, mass in bladder found to be clot, did have cysto /, no mass seen vitals stable car is reg abd is soft and non tender Will complete voiding trial before home, continue antibiotics. if improved may be home soon Documented By: Jayson Fish Level of Care Med/Surg Resuscitation Status FULL RESUSCITATION VTE Prophylaxis VTE Risk Assessment Done? Y/N: Yes Risk Level: Low Given or contraindicated: T.E.D. Stockings, SCD's, Contraindicated
[2016-04-22] MEDS ORDERED: INSDGIPEN SC (13:40)
[2016-04-22] MEDS ORDERED: GLUCAGON FOR INJ 1 MG VIAL SQ PRN (14:00)
[2016-04-22] MEDS ORDERED: DEXTROSE 50% 50 ML SYR IV PRN (14:00)
[2016-04-22] MEDS ORDERED: GLUCOSE 10 TABS/TUBE PO PRN (14:00)
[2016-04-22] MEDS ORDERED: GLUCOSE 40% GEL 15 GM TUBE PO PRN (14:00)
[2016-04-22] MEDS ORDERED: BISO10TA4 PO (15:40)
[2016-04-22] MEDS: CEFTRIAXONE SOD INJ 1,000 MG in DEXTROSE 5% 50ML 50 ML IV SCH (15:41)
[2016-04-22] MEDS: INSULIN ASPART 100 UNITS/ML 3 ML PEN SC SCH ×2 (18:59→21:51)
[2016-04-22] MEDS: FLUTICASONE INH SCH (19:00)
[2016-04-22] MEDS: SEVELAMER HYDROCH 800 MG TAB PO SCH (19:00)
--- NOTE | 2016-04-22 19:03 | Urology Consultation ---
History General Date of Service: Apr 22, 2016. Chief Complaint: Gross hematuria, possible bladder mass on CT scan Primary Care Physician: Juliet Rick. Pt seen a urologist before?: No History of Present Illness 65 yo male with a history of ESRD admitted due to gross hematuria and voiding issues. He notes he was recently suspected to have a UTI and provided antibiotics for this reason. He lives closer to [place] but after progression to gross hematuria with passage of clots presented locally for acute care. He underwent a CT scan on admission - images reviewed personally with patient. This shows no hydro, possible bladder lesion vs. clot. Moreno is currently in place with the passage of dark, inky urine. He notes dysuria with the moreno in place, currently on IV antibiotic therapy. present in room. HPI - Hematuria Hematuria: gross Associated Symptoms: decreased stream, frequency History of UTI: positive (per patient report) History of Cystoscopy: none Imaging Imaging: CT Laboratory Last 24 Hours Test 04/22/16 08:30 04/22/16 08:55 04/22/16 14:27 Urine Color RED Urine Appearance TURBID Urine pH 6.5 Urine Specific [place] 1.020 Urine Protein 3+ Urine Glucose (UA) NEG Urine Ketones NEG Urine Occult Blood 3+ Urine Nitrite POS Urine Bilirubin NEG Urine Urobilinogen NEG Urine Leukocyte Esterase SMALL Urine RBC >30 /hpf Urine WBC >30 /hpf Urine Epithelial Cells 5-10 /lpf Urine Bacteria 2+ White Blood Count 12.84 K/uL Red Blood Count 3.30 M/uL Hemoglobin 9.6 g/dL Hematocrit 29.5 % Mean Corpuscular Volume 89.4 fL Mean Corpuscular Hemoglobin 29.1 pg Mean Corpuscular Hemoglobin Concent 32.5 g/dl Platelet Count 326 K/uL Mean Platelet Volume 9.3 fL Neutrophils (%) (Auto) 73.3 % Lymphocytes (%) (Auto) 16.7 % Monocytes (%) (Auto) 7.9 % Eosinophils (%) (Auto) 1.6 % Basophils (%) (Auto) 0.2 % Neutrophils # (Auto) 9.41 K/uL Lymphocytes # (Auto) 2.14 K/uL Monocytes # (Auto) 1.01 K/uL Eosinophils # (Auto) 0.21 K/uL Basophils # (Auto) 0.03 K/uL RDW Standard Deviation 52.6 fL RDW Coefficient of Variation 15.9 % Immature Granulocyte % (Auto) 0.3 % Immature Granulocyte # (Auto) 0.04 K/uL Sodium Level 133 mmol/L Potassium Level 3.8 mmol/L Chloride Level 96 mmol/L Carbon Dioxide Level 24 mmol/L Anion Gap 13.0 mmol/L Blood Urea Nitrogen 62 mg/dl Creatinine 8.90 mg/dl Est Creatinine Clear Calc Drug Dose 10.7 ml/min Estimated GFR () 6.5 Estimated GFR (Non- 5.6 BUN/Creatinine Ratio 7.0 Random Glucose 131 mg/dl Calcium Level 7.7 mg/dl Total Bilirubin 0.4 mg/dl Aspartate Amino Transf (AST/SGOT) 19 U/L Alanine Aminotransferase (ALT/SGPT) 22 U/L Alkaline Phosphatase 162 U/L Total Protein 7.1 gm/dl Albumin 2.7 gm/dl Globulin 4.4 gm/dl Albumin/Globulin Ratio 0.6 Bedside Glucose 113 mg/dl Problem List Medical Problems: (1) Cellulitis Status: Acute (2) Failure of outpatient treatment Status: Acute (3) Ulcer of foot with necrosis of muscle Status: Acute (4) Wound infection Status: Acute Past History diabetes, renal disease, urinary tract infection, other (neuropathy, history of LE gangrene) Past Surgical History: other (LE amputation) Family History No pertinent family history Lung cancer mother and father Social History Hx Tobacco Use In Past Year?: No Smoking: non-smoker Marital status: Housing status: lives with significant other Occupation status: retired Allergies Coded Allergies: No Known Allergies (Unverified , 04/22/16) Medications Home Medications: Home Meds and Scripts Medications Dose Route/Sig Max Daily Dose Days Date Category Dose Instructions Keflex (Cephalexin Monohydrate) 500 Mg Cap 500 Mg PO DAILY 04/22/16 Reported Lantus Solostar (Insulin Glargine) 100 Unit/Ml Inj 20 Units SC QAM 04/17/16 Reported Tylenol (Acetaminophen) 500 Mg Tab 1,000 Mg PO Q4H PRN 03/19/16 Reported Lasix (Furosemide) 80 Mg Tab 160 Mg PO DAILY 90 01/18/16 Reported Flovent Diskus (Fluticasone Propionate (Inhala) 100 Mcg/Blist Aer 1 Puffs INH BID 01/18/16 Reported Sensipar (Cinecalcet) 60 Mg Tab 60 Mg PO DAILY 01/18/16 Reported Diclofenac Sodium (Diclofenac Sodium (Topical)) 1 % Gel 01/18/16 Reported Bisoprolol Fumarate 10 Mg Tab 20 Mg PO QAM 09/08/14 Reported Lipitor (Atorvastatin) 20 Mg Tab 20 Mg PO QPM 09/01/14 Reported Renvela (Sevelamer Carbonate) 800 Mg Tab 1,600 Mg PO TIDM 09/01/14 Reported D 5000 (Cholecalciferol) 5,000 Unit Cap 5,000 Units PO WK 09/01/14 Reported FRIDAYS Nephro-Rani Rx (B-Complex W/ C & Folic Acid) 1 Tab Tab 1 Tab PO QPM 09/01/14 Reported Novolog Mix 70/30 (Insulin Aspart Prota 70%/Aspart 30%) Susp 7 Units SC TIDM 09/01/14 Reported Aspirin Ec (Aspirin) 81 Mg Tab 81 Mg PO QPM 09/01/14 Reported NOT INSTRUCTED TO STOP BY SURGEON-PER PT Inpatient Medications: Current Inpatient Medications Medications (Trade) Dose Ordered Sig/Dwayne Route Start Time Stop Time Status Last Admin Dose Admin Acetaminophen (Tylenol Tab) 650 mg Q4H PRN PO 04/22/16 12:15 05/22/16 12:14 Ondansetron HCl (Zofran Inj) 4 mg Q6H PRN IV 04/22/16 12:15 05/22/16 12:14 Insulin Aspart (novoLOG ASPART) SLIDING SCALE G... ACHS SC 04/22/16 17:15 05/22/16 17:14 Atorvastatin Calcium (Lipitor Tab) 20 mg QPM PO 04/22/16 21:00 05/22/16 20:59 Furosemide (Lasix Tab) 160 mg DAILY PO 04/23/16 09:00 05/23/16 08:59 Insulin Glargine (Lantus Solostar Pen) 10 unit QAM SC 04/23/16 09:00 05/23/16 08:59 Bisoprolol Fumarate (Bisoprolol Fumarate) 20 mg QAM PO 04/23/16 09:00 05/23/16 08:59 Cinacalcet (Sensipar) 60 mg DAILY PO 04/23/16 09:00 05/23/16 08:59 Sevelamer HCl 1600 mg 1,600 mg TIDM PO 04/22/16 17:45 05/22/16 17:59 Ceftriaxone Sodium/Dextrose (Rocephin Inj/D5 50ml) 60 ml @ 100 mls/hr DAILY@1400 IV 04/22/16 14:00 05/02/16 13:59 04/22/16 15:41 100 MLS/HR Glucose (Glucose 40% Gel) 15-30 GRAMS 15 GRAMS... UD PRN PO 04/22/16 14:00 05/22/16 13:59 Glucose (Glucose Chew Tab) 4-8 Tablets 4 Tabl... UD PRN PO 04/22/16 14:00 05/22/16 13:59 Dextrose (Dextrose 50% 50ML Syringe) 25-50ML OF 50% DW IV FOR... UD PRN IV 04/22/16 14:00 05/22/16 13:59 Glucagon (Glucagon Inj) 1 mg UD PRN SQ 04/22/16 14:00 05/22/16 13:59 Review of Systems Review of Systems Constitutional: No chills, No fever Eyes: No double vision, No eye pain Neurological: No passing out Endocrine: No tired/sluggish Gastrointestinal: No nausea, No vomiting Cardiovascular: No angina, No chest pain Respiratory: No coughing up blood, No shortness of breath Skin: No boils, No dry skin Musculoskeletal: No back pain Ears / Nose / Throat: No hearing loss Psychologic / Mental: No trouble remembering Male : + blood in urine, + see HPI Physical Exam Vital Signs: Vital Signs Past 12 Hours Date Time Temp Pulse Resp B/P Pulse Ox O2 Delivery O2 Flow Rate FiO2 04/22/16 15:15 Room Air 04/22/16 15:08 36.6 56 16 158/63 98 Room Air 04/22/16 13:52 36.4 54 18 183/73 98 Room Air 04/22/16 11:43 51 18 166/67 97 Room Air 04/22/16 09:48 36.9 53 16 167/67 96 Room Air 04/22/16 08:20 37.1 56 18 170/61 98 Room Air Physical Exam: General Appearance: no apparent distress, + obese ENT: hearing grossly normal Neck: supple, no adenopathy Respiratory/Chest: no respiratory distress, no accessory muscle use Cardiovascular: no JVD Gastrointestinal: Abdomen: normal abdomen Bladder: normal bladder Renal: normal renal Hernia: absent hernia Liver: normal liver Spleen: normal spleen Genitourinary - Male: Penis: normal penis, phimosis Urethral Meatus: normal urethral meatus Testes: normal testes Epididymides: normal epididymides Scrotum: normal scrotum Extremities: + pertinent finding (R BKA) Neurologic/Psychiatric: alert, oriented x 3 Skin: normal color Assessment & Plan Assessment & Plan A/P 65 yo male with ESRD, gross hematuria, history of UTI. Currently on IV ABx. 16 fr moreno irrigated with return of old clot, rapid lightening of urine color. Seen the differential of clot vs. large intravesical mass as well as distance of residence, patient offered bedside cysto. Wishes to proceed. He understands that this will be a limited exam and likely need to be repeated, but in the case of a large bladder mass occupying a significant portion of his bladder volume this should be visible and can beauty counselor appropriately. After obtaining consent and removing moreno patient prepped with betadine. Well lubricated flexible cystoscope introduced into bladder - normal urethra, moderate BPH with lateral lobe hypertrophy, no median lobe. A small amount of dependent clot noted in bladder, apparently decreased from prior after bladder irrigation. Mild trabeculation, no obvious tumors visible. UOs poorly visualized , limited due to old blood in urine but no large masses appreciated. Well tolerated. 20 fr coude replaced, irrigated with no further clots returning, light pink urine. Findings reviewed with patient and . Cysto today encouraging, will plan on repeat in office in 2 months with better equipment for visualization. However urgent intervention should not be needed. Should be reasonable to proceed with trial of void prior to DC home. Antibiotics, medical management per primary service. Will follow.
[2016-04-22] MEDS: ATORVASTATIN 20 MG TAB PO SCH (21:51)
[2016-04-23] VITALS (8 sets, daily range): BP systolic 165–188; BP diastolic 63–73; PULSE 55–62; TEMP 36.8–37.1; O2SAT 94–95
[2016-04-23] MEDS: ATORVASTATIN 20 MG TAB PO SCH (00:27)
[2016-04-23] MEDS: HydrALAZINE HCL 20 MG/ML VIAL IV. STA ×2 (01:09→04:09)
[2016-04-23] MEDS: FLUTICASONE INH SCH (06:21)
--- NOTE | 2016-04-23 07:29 | Clinical Documentation Query ---
MINDY Hicks : CLINICAL DOCUMENTATION QUERY Patient is a 65 year old patient with ESRD admitted for hematuria in the setting of a UTI. EMR review demonstrates documentation potentially discrepant with that which was intended. Problem list includes acute cellulitis, acute foot ulcer with necrosis of muscle, and acute wound infection, not otherwise specified. 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 Thank you. In your clinical opinion is this patient being managed for: ( ) Acute cellulitis, acute foot ulcer with necrosis of muscle, acute wound infection, not otherwise specified. ( ) Other explanation of clinical findings (Please Explain) ( ) Unable to determine (Please Define) ( ) Need to Discuss ( ) Not Agree The medical record reflects the following clinical findings, treatment, and risk factors. Clinical Indicators: As above Treatment: n/a Risk Factors: n/a Please clarify and document your clinical opinion in the progress notes and discharge summary. Terms such as "probable", "suspected", "likely", "questionable", "possible", or "still to be ruled out" are acceptable. IF IN AGREEMENT, YOU MUST DOCUMENT ABOVE DIAGNOSTIC STATEMENT IN DAILY PROGRESS NOTES AND DISCHARGE SUMMARY. This document is not part of the patient's record.
[2016-04-23 07:34] LABS: BASO % 0.4 %; BASO ABS # 0.04 K/uL (0-0.2); COMPLETE YES; EOS % 1.4 %; HEMATOCRIT 28.9 % (42-52); IG% 0.4 %; LYMPH % 14.9 %; LYMPH ABS # 1.63 K/uL (1.2-3.4); MEAN CELL VOLUME 89.5 fL (80-100); MEAN CORPUSCULAR HEMOGLOBIN 28.8 pg (25-34); MEAN CORPUSCULAR HGB CONC 32.2 g/dl (32-36); MEAN PLATELET VOLUME 8.9 fL (7.4-10.4); NEUT % 72.9 %; PLATELET COUNT 344 K/uL (130-400); RED BLOOD COUNT 3.23 M/uL (4.7-6.1); WHITE BLOOD COUNT 10.91 K/uL (4.8-10.8)
[2016-04-23 08:08] LABS: BUN/CREATININE RATIO 6.3 (10-20); CALCIUM 7.9 mg/dl (8.5-10.1); CREATININE 6.9 mg/dl (0.60-1.40); POTASSIUM 3.7 mmol/L (3.5-5.1)
--- NOTE | 2016-04-23 08:23 | Progress Note ---
Subjective Date of Service: Apr 23, 2016. Subjective Pt evaluation today including: conversation w/ patient, chart review, lab review Voiding: moreno catheter in place (patent, draining minimal amounts of bright red urine) 65 yo male with gross hematuria; on dialysis. Moreno remains in place draining small amounts of bright red urine. Pt denies any pain this morning. Problem List Medical Problems: (1) Anemia Status: Acute (2) Cellulitis Status: Acute (3) End stage renal disease Status: Acute (4) Failure of outpatient treatment Status: Acute (5) Mass of bladder Status: Acute (6) Ulcer of foot with necrosis of muscle Status: Acute (7) Urinary tract infection Status: Acute (8) Wound infection Status: Acute Review of Systems Constitutional: No chills, No fever Respiratory: No shortness of breath Cardiac: No chest pain Abdomen: No nausea, No pain, No vomiting Male : + hematuria Objective Vital Signs Date Time Temp Pulse Resp B/P Pulse Ox O2 Delivery O2 Flow Rate FiO2 04/23/16 06:28 58 181/73 04/23/16 05:40 62 177/70 04/23/16 04:06 58 170/66 Room Air 04/23/16 03:48 37.1 55 16 180/73 94 Room Air 04/23/16 01:12 58 165/63 04/23/16 00:15 58 188/70 04/23/16 00:10 Room Air 04/22/16 23:15 36.8 58 16 195/79 96 Room Air 04/22/16 22:59 37.3 58 184/75 04/22/16 22:15 54 155/61 04/22/16 22:00 53 164/63 04/22/16 21:45 53 162/67 04/22/16 21:30 52 168/71 04/22/16 21:15 54 124/72 04/22/16 21:00 53 158/72 04/22/16 20:45 51 163/67 04/22/16 20:30 55 155/75 04/22/16 20:15 58 148/67 04/22/16 20:00 55 154/67 04/22/16 19:45 55 157/64 04/22/16 19:24 58 186/75 04/22/16 19:11 37.6 58 163/76 04/22/16 15:15 Room Air 04/22/16 15:08 36.6 56 16 158/63 98 Room Air 04/22/16 13:52 36.4 54 18 183/73 98 Room Air 04/22/16 11:43 51 18 166/67 97 Room Air 04/22/16 09:48 36.9 53 16 167/67 96 Room Air 04/22/16 08:20 37.1 56 18 170/61 98 Room Air Physical Exam General Appearance: no apparent distress, + obese Eyes: normal inspection ENT: hearing grossly normal Neck: no JVD Respiratory/Chest: no respiratory distress, no accessory muscle use Cardiovascular: no JVD Extremities: normal inspection Neurologic/Psychiatric: alert, normal mood/affect, oriented x 3 Skin: normal color Laboratory Results Last 24 Hours Test 04/22/16 08:30 04/22/16 08:55 04/22/16 14:27 04/22/16 23:20 Urine Color RED Urine Appearance TURBID Urine pH 6.5 Urine Specific [place] 1.020 Urine Protein 3+ Urine Glucose (UA) NEG Urine Ketones NEG Urine Occult Blood 3+ Urine Nitrite POS Urine Bilirubin NEG Urine Urobilinogen NEG Urine Leukocyte Esterase SMALL Urine RBC >30 /hpf Urine WBC >30 /hpf Urine Epithelial Cells 5-10 /lpf Urine Bacteria 2+ White Blood Count 12.84 K/uL Red Blood Count 3.30 M/uL Hemoglobin 9.6 g/dL Hematocrit 29.5 % Mean Corpuscular Volume 89.4 fL Mean Corpuscular Hemoglobin 29.1 pg Mean Corpuscular Hemoglobin Concent 32.5 g/dl Platelet Count 326 K/uL Mean Platelet Volume 9.3 fL Neutrophils (%) (Auto) 73.3 % Lymphocytes (%) (Auto) 16.7 % Monocytes (%) (Auto) 7.9 % Eosinophils (%) (Auto) 1.6 % Basophils (%) (Auto) 0.2 % Neutrophils # (Auto) 9.41 K/uL Lymphocytes # (Auto) 2.14 K/uL Monocytes # (Auto) 1.01 K/uL Eosinophils # (Auto) 0.21 K/uL Basophils # (Auto) 0.03 K/uL RDW Standard Deviation 52.6 fL RDW Coefficient of Variation 15.9 % Immature Granulocyte % (Auto) 0.3 % Immature Granulocyte # (Auto) 0.04 K/uL Sodium Level 133 mmol/L Potassium Level 3.8 mmol/L Chloride Level 96 mmol/L Carbon Dioxide Level 24 mmol/L Anion Gap 13.0 mmol/L Blood Urea Nitrogen 62 mg/dl Creatinine 8.90 mg/dl Est Creatinine Clear Calc Drug Dose 10.7 ml/min Estimated GFR () 6.5 Estimated GFR (Non- 5.6 BUN/Creatinine Ratio 7.0 Random Glucose 131 mg/dl Calcium Level 7.7 mg/dl Total Bilirubin 0.4 mg/dl Aspartate Amino Transf (AST/SGOT) 19 U/L Alanine Aminotransferase (ALT/SGPT) 22 U/L Alkaline Phosphatase 162 U/L Total Protein 7.1 gm/dl Albumin 2.7 gm/dl Globulin 4.4 gm/dl Albumin/Globulin Ratio 0.6 Bedside Glucose 113 mg/dl 143 mg/dl Test 04/23/16 06:42 04/23/16 07:36 White Blood Count 10.91 K/uL Red Blood Count 3.23 M/uL Hemoglobin 9.3 g/dL Hematocrit 28.9 % Mean Corpuscular Volume 89.5 fL Mean Corpuscular Hemoglobin 28.8 pg Mean Corpuscular Hemoglobin Concent 32.2 g/dl Platelet Count 344 K/uL Mean Platelet Volume 8.9 fL Neutrophils (%) (Auto) 72.9 % Lymphocytes (%) (Auto) 14.9 % Monocytes (%) (Auto) 10.0 % Eosinophils (%) (Auto) 1.4 % Basophils (%) (Auto) 0.4 % Neutrophils # (Auto) 7.96 K/uL Lymphocytes # (Auto) 1.63 K/uL Monocytes # (Auto) 1.09 K/uL Eosinophils # (Auto) 0.15 K/uL Basophils # (Auto) 0.04 K/uL RDW Standard Deviation 52.6 fL RDW Coefficient of Variation 16.0 % Immature Granulocyte % (Auto) 0.4 % Immature Granulocyte # (Auto) 0.04 K/uL Sodium Level 137 mmol/L Potassium Level 3.7 mmol/L Chloride Level 98 mmol/L Carbon Dioxide Level 26 mmol/L Anion Gap 13.0 mmol/L Blood Urea Nitrogen 44 mg/dl Creatinine 6.90 mg/dl Est Creatinine Clear Calc Drug Dose 14.0 ml/min Estimated GFR () 8.8 Estimated GFR (Non- 7.6 BUN/Creatinine Ratio 6.3 Random Glucose 119 mg/dl Calcium Level 7.9 mg/dl Bedside Glucose 114 mg/dl Assessment and Plan A/P: Gross hematuria No evidence for tumor during cysto yesterday. Blood clot noted. Some hematuria persists today. Recommend irrigating moreno catheter qshift for now. Plan for trial of void prior to d/c home. Recommend he be d/c'd home on 5 days of abx. Will plan for outpatient f/u in our [place] office in 2-3 weeks. Plan for repeat outpatient cysto in 2 months.
[2016-04-23] MEDS ORDERED: FUROSEMIDE 80 MG TAB PO SCH (09:00)
[2016-04-23] MEDS ORDERED: BISOPROLOL FUMARATE 10 MG TAB PO SCH (09:00)
[2016-04-23] MEDS ORDERED: INSULIN GLARGINE SOLOSTAR 100 UNITS/ML 3 ML PEN SC SCH (09:00)
[2016-04-23] MEDS ORDERED: CINACALCET 30 MG TAB PO SCH (09:00)
[2016-04-23 09:15] LABS: HEPATITIS B AB NEG
[2016-04-23] MEDS: SEVELAMER HYDROCH 800 MG TAB PO SCH ×2 (09:44→13:08)
[2016-04-23] MEDS: INSULIN ASPART 100 UNITS/ML 3 ML PEN SC SCH ×2 (09:49→13:11)
[2016-04-23] MEDS ORDERED: ERTAPENEM IV 0.5 GM in SODIUM CHLOR 0.9% AD-VAN 50ML 50 ML IV ONE (11:15)
[2016-04-23] MEDS ORDERED: ASPI81TA28 PO (11:17)
--- NOTE | 2016-04-23 11:19 | Discharge Instructions ---
Discharge Instructions Admission Reason for Admission: Hematuria Discharge Discharge Diagnosis / Problem: hemorrhagic cystitis associated with E Coli Uti poa Discharge Goals Goal(s): Diagnostic testing, Therapeutic intervention Activity Recommendations Activity Limitations: resume your previous activity . Current Hospital Diet Patient's current hospital diet: Diabetes Type 2 Diet Discharge Diet Recommended Diet: Diabetes Type 2 Diet Pending Studies Studies pending at discharge: yes (additional urine culture) List of pending studies: urine culture Laboratory Results Hemoglobin A1c Test 01/27/16 05:35 Range/Units Estimated Average Glucose 183 mg/dl Hemoglobin A1c 8.0 H 4.5-5.6 % Lipid Panel Test 01/29/16 05:29 Range/Units Triglycerides Level 100 0-150 mg/dl Cholesterol Level 76 0-200 mg/dl HDL Cholesterol 29 mg/dl Cholesterol/HDL Ratio 2.6 LDL Cholesterol, Calculated 27 mg/dl Medical Emergencies . Who to Call and When: Medical Emergencies: If at any time you feel your situation is an emergency, please call 911 immediately. . Non-Emergent Contact Non-Emergency issues call your: Urologist (one week) . . "Provider Documentation" section prepared by Jayson Fish. VTE Core Measure Inpt VTE Proph given/why not?: T.E.D. Stockings, SCD's, Contraindicated
[2016-04-23] MEDS ORDERED: ERTAPENEM IV 500 MG in SODIUM CHLORIDE 0.9% 50 ML IV SCH (12:00)
--- NOTE | 2016-04-23 12:51 | NEPHROLOGY CONSULTATION ---
DATE OF CONSULTATION: 04/23/2016 ATTENDING OF RECORD: Dr. Fish. REASON FOR CONSULTATION: ESRD. HISTORY OF PRESENT ILLNESS: This is a 65-year-old old male who dialyzes at the [facility] Mondays, Wednesdays, and Fridays. Last dialysis treatment was Friday. The patient presented with hematuria which started on Friday with blood clots in his urine. He has had dysuria for about a week and has been treated with ciprofloxacin as an outpatient for urinary tract infection and now on Keflex secondary to sensitivities showing resistance to Cipro. The patient will urinate small amounts. Patient had a CT of the abdomen and pelvis secondary to the hematuria with positive blood clots and found a 4 x 6 cm mass in the bladder concerning for either a blood clot or a mass. On the day of admission, pt underwent dialysis since it was his regularly scheduled day. Dialysis went well and removed about 2 liters of fluid. Potassium levels this morning are good at 3.7 and has a Nunez catheter in place. Urology evaluated the patient yesterday and underwent a cystoscopy with bladder irrigation with no further clots and showing light pink urine. There is no mass visualized on cystoscopy, just clots and their plan is to repeat cystoscopy in the office in about 2 months. Plan is to remove the Nunez catheter today and if able to urinate okay to go home today per urology. The patient is comfortable without any complaints. PAST MEDICAL HISTORY: 1. End-stage renal disease, dialyzing Mondays, Wednesdays and Fridays at the [facility]. 2. Diabetes with neuropathy. 3. Hypertension. 4. Hyperlipidemia. 5. Diabetes. 6. COPD. 7. Peripheral vascular disease with left footdrop. PAST SURGICAL HISTORY: Fistula placement, right transmetatarsal amputation and right BKA in February and healing well. FAMILY HISTORY: No renal disease in family. SOCIAL HISTORY: No smoking. No drugs. Occasional alcohol. He is and lives at home with his . REVIEW OF SYSTEMS: No fevers or chills. No weight loss, weight gain. No blurry vision, no dysphagia. No itching. No shortness of breath. No chest pain. No nausea or vomiting. Has mild decreased appetite this morning but has been otherwise eating well with no other complaints and all other review of systems otherwise negative. CURRENT MEDICATIONS: Ertapenem 500 mg IV x1, Lasix 160 mg p.o. daily, Lantus 10 units subQ daily, Sensipar 60 mg daily, Lipitor 20 mg daily, Renvela 1600 mg p.o. t.i.d. with meals, ceftriaxone 1 gram IV daily. PHYSICAL EXAMINATION: VITAL SIGNS: Temperature 36.8, pulse 57, respiratory rate 18, blood pressure 169/71, pulse ox 95% on room air. GENERAL: Awake, alert, oriented x3. EYES: No scleral icterus. ENT: Moist mucous membranes. NECK: Supple. PULMONARY: Clear to auscultation. CARDIAC: Regular rate and rhythm. ABDOMEN: Bowel sounds positive, soft, nontender. EXTREMITIES: Right BKA with sutures in place. NEUROLOGICALLY: Nonfocal, does have a left footdrop and some neuropathy of his legs from his diabetes. DERMATOLOGIC: No rash or ulcers noted. GENITOURINARY: Positive Nunez in place with red-tinged urine. LABORATORIES: White count 10, H\T\H 9.3 and 28.9, platelet count 344. Sodium is 137, potassium 3.7, chloride is 98, bicarbonate is 26, BUN is 44, creatinine 6.9, glucose 119, calcium 7.9. UA showed 3+ protein, 3+ blood, positive nitrites, small leukocyte esterase, greater than 30 RBCs, greater than 30 WBCs. Urine culture though was negative. Abdominal pelvis CT shows a blood clot versus soft tissue mass 6 x 5 cm recommending cystoscopy. IMPRESSION AND PLAN: End-stage renal disease: The patient dialyzes Mondays, Wednesdays, and Fridays, tolerated dialysis well yesterday. We will continue dialysis Friday, Friday, Friday as an inpatient. Volume status and electrolytes are stable. No indication for emergent dialysis today. MTDD
[2016-04-23] MEDS: CEFTRIAXONE SOD INJ 1,000 MG in DEXTROSE 5% 50ML 50 ML IV SCH (13:48)
--- NOTE | 2016-04-23 14:15 | Discharge Summary ---
Discharge Summary Admission Date: Apr 22, 2016 at 12:27 Discharge Date: Apr 23, 2016 Discharge Disposition: Home Principal Diagnosis: hemorrhagic cystitis from drug resistent E Coli poa Procedures: cystoscopy by dr Renee, no mass seen suture removal of right BKA site Medication Reconciliation Changed Medications: Aspirin (Aspirin Ec) 81 Mg Tab 81 MG PO QPM, #60 DOSE (Changed from: NOT INSTRUCTED TO STOP BY SURGEON-PER PT) please hold for one week, resume once done with antibiotic Continued Medications: Acetaminophen (Tylenol) 500 Mg Tab 1000 MG PO Q4H PRN for Pain, TAB Atorvastatin (Lipitor) 20 Mg Tab 20 MG PO QPM, TAB B-Complex W/ C & Folic Acid (Nephro-Rani Rx) 1 Tab Tab 1 TAB PO QPM Bisoprolol Fumarate (Bisoprolol Fumarate) 10 Mg Tab 20 MG PO QAM, #180 Cephalexin Monohydrate (Keflex) 500 Mg Cap 500 MG PO DAILY, #15 CAP Cholecalciferol (D 5000) 5,000 Unit Cap 5000 UNITS PO WK FRIDAYS Cinecalcet (Sensipar) 60 Mg Tab 60 MG PO DAILY, TAB Diclofenac Sodium (Topical) (Diclofenac Sodium) 1 % Gel Fluticasone Propionate (Inhala (Flovent Diskus) 100 Mcg/Blist Aer 1 PUFFS INH BID, #1 INHALER 5 Refills Furosemide (Lasix) 80 Mg Tab 160 MG PO DAILY for 90 Days, #180 TAB 3 Refills Insulin Aspart 70/30 (Novolog Mix 70/30) Susp 7 UNITS SC TIDM, BTL Insulin Glargine (Lantus Solostar) 100 Unit/Ml Inj 20 UNITS SC QAM, PEN Sevelamer Carbonate (Renvela) 800 Mg Tab 1600 MG PO TIDM Discharge Exam Review of Systems: Constitutional: No chills, No fever Respiratory: No cough, No sputum, No wheezing Cardiovascular: No chest pain, No orthopnea Abdomen: No nausea, No pain, No vomiting Musculoskeletal: No joint pain, No muscle pain Genitourinary - Male: + hematuria, No dysuria Physical Exam: General Appearance: WD/WN, no apparent distress Neck: supple, no JVD Respiratory/Chest: chest non-tender, lungs clear, normal breath sounds Cardiovascular: regular rate, rhythm, no murmur Abdomen / GI: normal bowel sounds, non tender, soft Extremities: + pertinent finding (stump is clean and dry, suture are almost grown over) Hospital Course 65 y/o male presents to the ED with urinary frequency and hematuria. Known diagnosis of UTI growing Escherichia coli resistant to Cipro. Large Bladder clot. Patient did not appear septic. Hematuria, UTI, bladder mass proven to be blood clot. on Cystoscopy by DR Renee 04/22/16 -given two doses of rocephin and one of ertapenem, will continue cephalexin as out pt -Hold ASA for one week urology ok for moreno removal will arrange outpt follow up via their office End-stage renal disease dialysis Friday, Friday, Friday - Renvela 1600 mg TID, Sensipar 60 mg daily, Lasix 160 mg daily diabetes mellitus continue 70/30 and home regime HTN-Bisoprolol 20 mg in the AM Total Time Spent: Greater than 30 minutes This includes examination of the patient, discharge planning, medication reconciliation, and communication with other providers. Discharge Instructions Please refer to the electronic Patient Visit Report (Discharge Instructions) for additional information.
== END 2016-04-23 15:05 | disposition home or self-care (01) | DRG 689 ==
LOC: ENRESERVDT → ENRESERVTM → C.EDB 08:16 → C.MSN 12:27
PROVIDERS: ADMIT Internal Medicine; ATTEND Internal Medicine
PROC: 0TJB8ZZ Inspection of Bladder, Via Natural or Artificial Opening Endoscopic (ICD-10-PCS; principal; 2016-04-22)
PROC: 3E1K78Z Irrigation of Genitourinary Tract using Irrigating Substance, Via Natural or Artificial Opening (ICD-10-PCS; principal; 2016-04-22)
DX: N30.91 Cystitis, unspecified with hematuria (principal); N18.6 End stage renal disease; I12.0 Hypertensive chronic kidney disease with stage 5 chronic kidney disease or end stage renal disease; B96.20 Unspecified Escherichia coli [E. coli] as the cause of diseases classified elsewhere; Z16.23 Resistance to quinolones and fluoroquinolones; N32.89 Other specified disorders of bladder; N40.1 Benign prostatic hyperplasia with lower urinary tract symptoms; E11.40 Type 2 diabetes mellitus with diabetic neuropathy, unspecified; E11.22 Type 2 diabetes mellitus with diabetic chronic kidney disease; J44.9 Chronic obstructive pulmonary disease, unspecified; E78.5 Hyperlipidemia, unspecified; M21.372 Foot drop, left foot; I73.9 Peripheral vascular disease, unspecified; Z99.2 Dependence on renal dialysis; Z47.81 Encounter for orthopedic aftercare following surgical amputation; Z89.511 Acquired absence of right leg below knee; Z79.82 Long term (current) use of aspirin; Z79.51 Long term (current) use of inhaled steroids; Z79.4 Long term (current) use of insulin